=== PATIENT | male | born 1945 | race Caucasian/White ===

== ENCOUNTER 2018-02-06 14:23 | Emergency (ER) | payer OTHER ==
--- OUTSIDE RECORDS SUMMARY | 2018-02-06 14:26 | XMS REPORT ---
:1945 [facility] [address] [place] [address] Care Team Providers Name Role Phone TYLER CABRERA Unavailable Unavailable Problems This patient has no known problems. Allergies, Adverse Reactions, Alerts This patient has no known allergies or adverse reactions. Medications This patient has no known medications. Results Test Description Test Time Test Comments Text Results Atomic Results Result Comments POCT-GLUCOSE METER 2017-11-10 17:17:00 Test Item Value Reference Range Comments POC-GLUCOSE METER (BEAKER) (test 246 mg/dL 70-110 TESTED AT [facility] [address] gzjb=4126) [facility] [address] TROPONIN [id number] 13:35:00 Test Item Value Reference Range Comments TROPONIN I (BEAKER) (test mjea=533) 0.02 ng/mL 0.00-0.03 Troponin I (TnI) levels must be interpreted in the context of the presenting symptoms and the clinical findings. Elevated TnI levels indicate myocardial damage, but are not specific for ischemic heart disease. Elevated TnI levels are seen in patients with other cardiac conditions (including myocarditis and congestive heart failure), and slight TnI elevations occur in patients with other conditions, including sepsis, renal failure, acidosis, acute neurological disease, and persistent tachyarrhythmia.B-TYPE NATRIURETIC FACTOR (BNP) 13:29:00 Test Item Value Reference Range Comments B-TYPE NATRIURETIC PEPTIDE (BEAKER) (test 100 pg/mL 0-100 yqvf=147) [id number] 13:26:00 Test Item Value Reference Range Comments MAGNESIUM (BEAKER) (test kzti=212) 2.0 mg/dL 1.6-2.6 BASIC METABOLIC [id number] 13:26:00 Test Item Value Reference Range Comments SODIUM (BEAKER) (test 135 meq/L 136-145 tfqh=585) POTASSIUM (BEAKER) (test 3.5 meq/L 3.5-5.1 fjnx=568) CHLORIDE (BEAKER) (test 101 meq/L 98-107 bmul=171) CO2 (BEAKER) (test 25 meq/L 22-29 rtgy=599) BLOOD UREA NITROGEN 18 mg/dL 7-21 (BEAKER) (test jnjn=611) CREATININE (BEAKER) (test 1.33 mg/dL 0.57-1.25 amvl=533) GLUCOSE RANDOM (BEAKER) 114 mg/dL 70-105 (test ekiu=894) CALCIUM (BEAKER) (test 9.2 mg/dL 8.4-10.2 ypcg=010) EGFR (BEAKER) (test 53 mL/min/1.73 sq m ESTIMATED GFR IS NOT qgna=6032) ACCURATE CREATININE CLEARANCE IN PREDICTING GLOMERULAR FILTRATION RATE. ESTIMATED GFR IS NOT APPLICABLE FOR DIALYSIS PATIENTS. RAD, CHEST, 1 VIEW, NON [id number] 12:07:00Reason for exam:->coughShould this be performed at the bedside?->YesFINAL REPORT CLINICAL HISTORY: cough TECHNIQUE: 1 view of the chest. COMPARISON: None IMPRESSION: There are no focal infiltrates or effusions. The cardiomediastinal silhouette is magnified by technique. The osseous structures appear intact. Signed: Gaston Maddox Verified Date/Time: 11/10/2017 12:07:45 Reading Location: [facility] Radiology Reading Room POCT-GLUCOSE [id number] 12:06:00 Test Item Value Reference Range Comments POC-GLUCOSE METER (BEAKER) 116 mg/dL 70-110 TESTED AT [address] (test qtea=4971) [facility] [address] POCT-GLUCOSE [id number] 08:31:00 Test Item Value Reference Range Comments POC-GLUCOSE METER (BEAKER) 123 mg/dL 70-110 TESTED AT [address] (test slsp=6958) [facility] [address] POCT-GLUCOSE [id number] 21:22:00 Test Item Value Reference Range Comments POC-GLUCOSE METER (BEAKER) 156 mg/dL 70-110 TESTED AT [address] (test utni=4146) [place] [address] TROPONIN [id number] 19:39:00 Test Item Value Reference Range Comments TROPONIN I (BEAKER) (test mdwl=927) 0.02 ng/mL 0.00-0.03 Troponin I (TnI) levels must be interpreted in the context of the presenting symptoms and the clinical findings. Elevated TnI levels indicate myocardial damage, but are not specific for ischemic heart disease. Elevated TnI levels are seen in patients with other cardiac conditions (including myocarditis and congestive heart failure), and slight TnI elevations occur in patients with other conditions, including sepsis, renal failure, acidosis, acute neurological disease, and persistent tachyarrhythmia.BASIC METABOLIC [id number] 19:15:00 Test Item Value Reference Range Comments SODIUM (BEAKER) (test 138 meq/L 136-145 jyzq=788) POTASSIUM (BEAKER) (test 3.6 meq/L 3.5-5.1 zgar=093) CHLORIDE (BEAKER) (test 105 meq/L 98-107 cltl=202) CO2 (BEAKER) (test 24 meq/L 22-29 xljh=826) BLOOD UREA NITROGEN 14 mg/dL 7-21 (BEAKER) (test vesz=707) CREATININE (BEAKER) (test 1.17 mg/dL 0.57-1.25 bsrr=329) GLUCOSE RANDOM (BEAKER) 165 mg/dL 70-105 (test wvac=943) CALCIUM (BEAKER) (test 9.2 mg/dL 8.4-10.2 flaa=691) EGFR (BEAKER) (test 62 mL/min/1.73 sq m ESTIMATED GFR IS NOT asti=1547) ACCURATE CREATININE CLEARANCE IN PREDICTING GLOMERULAR FILTRATION RATE. ESTIMATED GFR IS NOT APPLICABLE FOR DIALYSIS PATIENTS. POCT-GLUCOSE [id number] 16:51:00 Test Item Value Reference Range Comments POC-GLUCOSE METER (BEAKER) 129 mg/dL 70-110 TESTED AT [address] (test jkyw=1965) [place] [address] POCT-GLUCOSE [id number] 12:13:00 Test Item Value Reference Range Comments POC-GLUCOSE METER (BEAKER) 181 mg/dL 70-110 TESTED AT [address] (test rvfz=3314) [place] [address] POCT-GLUCOSE [id number] 08:29:00 Test Item Value Reference Range Comments POC-GLUCOSE METER (BEAKER) 148 mg/dL 70-110 TESTED AT [address] (test kljg=6435) [place] [id number] BASIC METABOLIC [id number] 06:27:00 Test Item Value Reference Range Comments SODIUM (BEAKER) (test 139 meq/L 136-145 jbnw=619) POTASSIUM (BEAKER) (test 3.3 meq/L 3.5-5.1 ejrs=347) CHLORIDE (BEAKER) (test 108 meq/L 98-107 anyw=844) CO2 (BEAKER) (test 24 meq/L 22-29 laxa=610) BLOOD UREA NITROGEN 19 mg/dL 7-21 (BEAKER) (test qfoh=105) CREATININE (BEAKER) (test 1.09 mg/dL 0.57-1.25 utoc=723) GLUCOSE RANDOM (BEAKER) 136 mg/dL 70-105 (test dnax=746) CALCIUM (BEAKER) (test 8.5 mg/dL 8.4-10.2 ugxi=186) EGFR (BEAKER) (test 67 mL/min/1.73 sq m ESTIMATED GFR IS NOT fjxz=1409) ACCURATE CREATININE CLEARANCE IN PREDICTING GLOMERULAR FILTRATION RATE. ESTIMATED GFR IS NOT APPLICABLE FOR DIALYSIS PATIENTS. POCT-GLUCOSE [id number] 20:28:00 Test Item Value Reference Range Comments POC-GLUCOSE METER (BEAKER) 176 mg/dL 70-110 TESTED AT [address] (test onax=8517) [place] [id number] POCT-GLUCOSE [id number] 17:06:00 Test Item Value Reference Range Comments POC-GLUCOSE METER (BEAKER) 146 mg/dL 70-110 TESTED AT [address] (test gaje=4632) [place] [address] HEMOGLOBIN [id number] 11:51:00 Test Item Value Reference Range Comments HEMOGLOBIN A1C (BEAKER) (test blpa=902) 7.3 % 4.3-6.1 POCT-GLUCOSE [id number] 11:39:00 Test Item Value Reference Range Comments POC-GLUCOSE METER (BEAKER) 174 mg/dL 70-110 TESTED AT [address] (test efhs=9345) [place] [address] [id number] 11:11:00 Test Item Value Reference Range Comments RPR SCREEN (BEAKER) (test vwbu=307) Nonreactive Nonreactive POCT-GLUCOSE [id number] 08:37:00 Test Item Value Reference Range Comments POC-GLUCOSE METER (BEAKER) 138 mg/dL 70-110 TESTED AT [facility] [address] (test hkpl=3638) [facility] [address] TSH/FREE T4 IF [id number] 08:17:00 Test Item Value Reference Range Comments THYROID STIMULATING HORMONE (BEAKER) (test 3.52 uIU/mL 0.35-4.94 lphy=451) VITAMIN B12 AND [id number] 08:17:00 Test Item Value Reference Range Comments VITAMIN B12 (BEAKER) (test kkhp=626) 225 pg/mL 213-816 FOLATE (BEAKER) (test etjk=307) 14.0 ng/mL >=7.0 LIPID [id number] 07:10:00 Test Item Value Reference Range Comments TRIGLYCERIDES (BEAKER) (test lsap=105) 91 mg/dL CHOLESTEROL (BEAKER) (test ocgw=034) 208 mg/dL HDL CHOLESTEROL (BEAKER) (test azqc=060) 37 mg/dL LDL CHOLESTEROL CALCULATED (BEAKER) (test 153 mg/dL nzrp=624) Triglyceride Reference Range: Low Risk <150 Borderline 150- 199 High Risk 200-499 Very High Risk >=500Cholesterol Reference Range: Low Risk <200 Borderline 200-239 High Risk > 240HDL Cholesterol Reference Range: Low Risk >=60 High Risk <40LDL Cholesterol Reference Range: Optimal <100 Near Optimal 100-129 Borderline 130-159 High 160-189 Very High >=190COMPREHENSIVE METABOLIC [id number] 07:10:00 Test Item Value Reference Range Comments TOTAL PROTEIN (BEAKER) 6.7 gm/dL 6.0-8.3 (test jhjo=174) ALBUMIN (BEAKER) (test 3.5 g/dL 3.5-5.0 edmy=4100) ALKALINE PHOSPHATASE 106 U/L 40-150 (BEAKER) (test qsad=486) BILIRUBIN TOTAL (BEAKER) 1.7 mg/dL 0.2-1.2 (test oqqb=493) SODIUM (BEAKER) (test 139 meq/L 136-145 extl=524) POTASSIUM (BEAKER) (test 3.1 meq/L 3.5-5.1 brzn=085) CHLORIDE (BEAKER) (test 106 meq/L 98-107 whqy=353) CO2 (BEAKER) (test 26 meq/L 22-29 yulv=419) BLOOD UREA NITROGEN 19 mg/dL 7-21 (BEAKER) (test dnje=977) CREATININE (BEAKER) (test 1.11 mg/dL 0.57-1.25 atma=596) GLUCOSE RANDOM (BEAKER) 128 mg/dL 70-105 (test kdvh=747) CALCIUM (BEAKER) (test 8.7 mg/dL 8.4-10.2 xgax=972) AST (SGOT) (BEAKER) (test 36 U/L 5-34 rcvd=068) ALT (SGPT) (BEAKER) (test 26 U/L 6-55 cfnq=723) EGFR (BEAKER) (test 65 mL/min/1.73 sq m ESTIMATED GFR IS NOT gnml=1686) ACCURATE CREATININE CLEARANCE IN PREDICTING GLOMERULAR FILTRATION RATE. ESTIMATED GFR IS NOT APPLICABLE FOR DIALYSIS PATIENTS. [id number] 06:26:00 Test Item Value Reference Range Comments PROTIME (BEAKER) (test rqii=186) 15.5 seconds 11.7-14.7 INR (BEAKER) (test prht=161) 1.2 <=5.9 PARTIAL THROMBOPLASTIN TIME (BEAKER) (test 33.9 seconds 22.5-36.0 ngwh=624) RECOMMENDED COUMADIN/WARFARIN INR THERAPY RANGESSTANDARD DOSE: 2.0 - 3.0 Includes: PROPHYLAXIS forvenous thrombosis, systemic embolization; TREATMENT for venous thrombosis and/or pulmonary embolus.HIGH RISK: Target INR is 2.5-3.5 for patients with mechanical heart valves.CBC W/PLT COUNT & AUTO [id number] 06:08:00 Test Item Value Reference Range Comments WHITE BLOOD CELL COUNT (BEAKER) (test vkop=324) 7.5 K/ L 3.5-10.5 RED BLOOD CELL COUNT (BEAKER) (test tuzw=426) 4.31 M/ L 4.63-6.08 HEMOGLOBIN (BEAKER) (test qeog=500) 14.0 GM/DL 13.7-17.5 HEMATOCRIT (BEAKER) (test koew=826) 40.2 % 40.1-51.0 MEAN CORPUSCULAR VOLUME (BEAKER) (test jftz=506) 93.3 fL 79.0-92.2 MEAN CORPUSCULAR HEMOGLOBIN (BEAKER) (test 32.5 pg 25.7-32.2 mute=856) MEAN CORPUSCULAR HEMOGLOBIN CONC (BEAKER) (test 34.8 GM/DL 32.3-36.5 nfyr=831) RED CELL DISTRIBUTION WIDTH (BEAKER) (test 12.6 % 11.6-14.4 nluj=176) PLATELET COUNT (BEAKER) (test hxqi=398) 160 K/CU MM 150-450 MEAN PLATELET VOLUME (BEAKER) (test dclu=911) 10.1 fL 9.4-12.4 NUCLEATED RED BLOOD CELLS (BEAKER) (test 0 /100 WBC 0-0 nyoi=973) NEUTROPHILS RELATIVE PERCENT (BEAKER) (test 52 % fjyv=963) LYMPHOCYTES RELATIVE PERCENT (BEAKER) (test 36 % aesb=648) MONOCYTES RELATIVE PERCENT (BEAKER) (test 8 % ylgp=462) EOSINOPHILS RELATIVE PERCENT (BEAKER) (test 4 % fkgb=859) BASOPHILS RELATIVE PERCENT (BEAKER) (test 1 % bwnq=234) NEUTROPHILS ABSOLUTE COUNT (BEAKER) (test 3.90 K/ L 1.78-5.38 edew=337) LYMPHOCYTES ABSOLUTE COUNT (BEAKER) (test 2.68 K/ L 1.32-3.57 obxw=793) MONOCYTES ABSOLUTE COUNT (BEAKER) (test 0.58 K/ L 0.30-0.82 cesn=992) EOSINOPHILS ABSOLUTE COUNT (BEAKER) (test 0.28 K/ L 0.04-0.54 snwr=179) BASOPHILS ABSOLUTE COUNT (BEAKER) (test 0.05 K/ L 0.01-0.08 yrxf=601) IMMATURE GRANULOCYTES-RELATIVE PERCENT (BEAKER) 0 % 0-1 (test ykpf=1663) MR, MRA, BRAIN, WITHOUT [id number] 03:09:00Reason for exam:-> Ischemic Stroke EvaluationFINAL REPORT MR, BRAIN, WITHOUT CONTRAST, MR, MRA, NECK, WITHOUT IV CONTRAST,MR, MRA, BRAIN, WITHOUT CONTRAST INDICATION: StrokeIschemic Stroke Evaluation TECHNIQUE: Multiplanar, multisequence MR images of the brain. 3-D time of flight MRA of the cranial and cervical circulation. 2-D time of flight MRA of the neck. 3D MIP angiographic post-processing was performed. Stenosis evaluation utilized NASCET criteria. COMPARISON: None FINDINGS: The entire exam is slightly limited due to motion artifact. MRI BRAIN: There is an acute infarction of the right posterior limb of the internal capsule and some of the ventrolateral thalamus.There is a tiny focus of diffusion abnormality measuring 6 mm along the right lateral peritrigonal temporal lobe. There is correlating T2 and FLAIR signal abnormality without ADC signal abnormality. Findings probably reflect a subacute infarct in this location with pseudonormalization of the ADC map.No evidence of hemorrhagic transformation.Moderateglobal volume loss with moderate patchy periventricular and subcortical areas of T2 and FLAIR signalabnormality consistent with chronic microvascular ischemic disease.No acute hydrocephalus.Preserved flow voids in the major intracranial vascular structures. Symmetric lobes.Moderate mucosal sinus disease of the left frontal and right ethmoid sinuses. MRA NECK: On the right, there is no significant atherosclerotic plaque at the CCA bifurcation. No flow-limiting stenosis or dissection.On the left, there is no significant atherosclerotic plaque at the CCA bifurcation. 30% narrowing of the proximal left ICA, just distal to the bifurcation.Co-dominant vertebral artery system. No flow-limiting stenosis of vertebral arteries. MRA HEAD: Widely patent high cervical ICAs.Multiple mild-to- moderate stenoses throughout the petrous ICA secondary to atherosclerosis. Mild atherosclerotic disease at the carotid siphon.No large vessel occlusion or aneurysm of the anterior circulation on this motion limited exam.Moderate irregularity of the bilateral P1 segments secondary to intracranial atherosclerosis. No flowlimiting stenosis. The remainder of the posterior circulation is unremarkable IMPRESSION:Acute infarction of the right posterior limb of the internal capsule and a small part of the ventrolateral thalamus.Probable tiny subacute infarction in the right temporal lobe.No flow- limiting stenosis of the intra or extracranial cerebral arterial vasculature.30 % narrowing of the proximal left ICA.Intracranial atherosclerosis causing multiple areas of mild to moderate stenoses in the petrous ICAs, carotid siphons , and bilateral P1 segments. Signed: Baron Andino MDReport Verified Date/Time : 11/08/2017 03:09:50 Reading Location: [facility] B1 C013X Ortho Consult Reading Room MR , MRA, NECK, WITHOUT IV [id number] 03:09:00Reason for exam:-> Ischemic Stroke EvaluationFINAL REPORT MR, BRAIN, WITHOUT CONTRAST, MR, MRA, NECK, WITHOUT IV CONTRAST,MR, MRA, BRAIN, WITHOUT CONTRAST INDICATION: StrokeIschemic Stroke Evaluation TECHNIQUE: Multiplanar, multisequence MR images of the brain. 3-D time of flight MRA of the cranial and cervical circulation. 2-D time of flight MRA of the neck. 3D MIP angiographic post-processing was performed. Stenosis evaluation utilized NASCET criteria. COMPARISON: None FINDINGS: The entire exam is slightly limited due to motion artifact. MRI BRAIN: There is an acute infarction of the right posterior limb of the internal capsule and some of the ventrolateral thalamus.There is a tiny focus of diffusion abnormality measuring 6 mm along the right lateral peritrigonal temporal lobe. There is correlating T2 and FLAIR signal abnormality without ADC signal abnormality. Findings probably reflect a subacute infarct in this location with pseudonormalization of the ADC map.No evidence of hemorrhagic transformation.Moderateglobal volume loss with moderate patchy periventricular and subcortical areas of T2 and FLAIR signalabnormality consistent with chronic microvascular ischemic disease.No acute hydrocephalus.Preserved flow voids in the major intracranial vascular structures. Symmetric lobes.Moderate mucosal sinus disease of the left frontal and right ethmoid sinuses. MRA NECK: On the right, there is no significant atherosclerotic plaque at the CCA bifurcation. No flow-limiting stenosis or dissection.On the left, there is no significant atherosclerotic plaque at the CCA bifurcation. 30% narrowing of the proximal left ICA, just distal to the bifurcation.Co-dominant vertebral artery system. No flow-limiting stenosis of vertebral arteries. MRA HEAD: Widely patent high cervical ICAs.Multiple mild-to- moderate stenoses throughout the petrous ICA secondary to atherosclerosis. Mild atherosclerotic disease at the carotid siphon.No large vessel occlusion or aneurysm of the anterior circulation on this motion limited exam.Moderate irregularity of the bilateral P1 segments secondary to intracranial atherosclerosis. No flowlimiting stenosis. The remainder of the posterior circulation is unremarkable IMPRESSION:Acute infarction of the right posterior limb of the internal capsule and a small part of the ventrolateral thalamus.Probable tiny subacute infarction in the right temporal lobe.No flow- limiting stenosis of the intra or extracranial cerebral arterial vasculature.30 % narrowing of the proximal left ICA.Intracranial atherosclerosis causing multiple areas of mild to moderate stenoses in the petrous ICAs, carotid siphons , and bilateral P1 segments. Signed: Baron Andino MDReport Verified Date/Time : 11/08/2017 03:09:50 Reading Location: [facility] C013X Ortho Consult Reading Room MR , BRAIN, WITHOUT [id number] 03:09:00Reason for exam:->Ischemic Stroke EvaluationFINAL REPORT MR, BRAIN, WITHOUT CONTRAST , MR, MRA, NECK, WITHOUT IV CONTRAST,MR, MRA, BRAIN, WITHOUT CONTRAST INDICATION : StrokeIschemic Stroke Evaluation TECHNIQUE: Multiplanar, multisequence MR images of the brain. 3-D time of flight MRA of the cranial and cervical circulation. 2-D time of flight MRA of the neck. 3D MIP angiographic post- processing was performed. Stenosis evaluation utilized NASCET criteria. COMPARISON: None FINDINGS: The entire exam is slightly limited due to motion artifact. MRI BRAIN: There is an acute infarction of the right posterior limb of the internal capsule and some of the ventrolateral thalamus.There is a tiny focus of diffusion abnormality measuring 6 mm along the right lateral peritrigonal temporal lobe. There is correlating T2 and FLAIR signal abnormality without ADC signal abnormality. Findings probably reflect a subacute infarct in this location with pseudonormalization of the ADC map.No evidence of hemorrhagic transformation.Moderateglobal volume loss with moderate patchy periventricular and subcortical areas of T2 and FLAIR signalabnormality consistent with chronic microvascular ischemic disease.No acute hydrocephalus.Preserved flow voids in the major intracranial vascular structures. Symmetric lobes.Moderate mucosal sinus disease of the left frontal and right ethmoid sinuses. MRA NECK: On the right, there is no significant atherosclerotic plaque at the CCA bifurcation. No flow-limiting stenosis or dissection.On the left, there is no significant atherosclerotic plaque at the CCA bifurcation. 30% narrowing of the proximal left ICA, just distal to the bifurcation.Co-dominant vertebral artery system. No flow-limiting stenosis of vertebral arteries. MRA HEAD: Widely patent high cervical ICAs.Multiple mild-to- moderate stenoses throughout the petrous ICA secondary to atherosclerosis. Mild atherosclerotic disease at the carotid siphon.No large vessel occlusion or aneurysm of the anterior circulation on this motion limited exam.Moderate irregularity of the bilateral P1 segments secondary to intracranial atherosclerosis. No flowlimiting stenosis. The remainder of the posterior circulation is unremarkable IMPRESSION:Acute infarction of the right posterior limb of the internal capsule and a small part of the ventrolateral thalamus.Probable tiny subacute infarction in the right temporal lobe.No flow- limiting stenosis of the intra or extracranial cerebral arterial vasculature.30 % narrowing of the proximal left ICA.Intracranial atherosclerosis causing multiple areas of mild to moderate stenoses in the petrous ICAs, carotid siphons , and bilateral P1 segments. Signed: Baron Andino MDReport Verified Date/Time : 11/08/2017 03:09:50 Reading Location: [facility] C013X Ortho Consult Reading Room POCT-GLUCOSE [id number] 23:19:00 Test Item Value Reference Range Comments POC-GLUCOSE METER (BEAKER) 102 mg/dL 70-110 TESTED AT [address] (test olzs=5234) [facility] [address] POCT-GLUCOSE [id number] 23:13:00 Test Item Value Reference Range Comments POC-GLUCOSE METER (BEAKER) 112 mg/dL 70-110 TESTED AT [address] (test cajc=9282) [facility] [address] URINALYSIS W/ [id number] 22:45:00 Test Item Value Reference Range Comments COLOR (BEAKER) (test gply=606) Yellow CLARITY (BEAKER) (test hxfx=257) Clear SPECIFIC GRAVITY UA (BEAKER) (test lfrz=766) 1.015 1.001-1.035 PH UA (BEAKER) (test jaym=592) 5.5 5.0-8.0 PROTEIN UA (BEAKER) (test phrr=716) 10 mg/dL Negative GLUCOSE UA (BEAKER) (test ryol=495) 500 mg/dL Negative KETONES UA (BEAKER) (test cmnv=372) 10 mg/dL Negative BILIRUBIN UA (BEAKER) (test dsbr=498) Negative Negative BLOOD UA (BEAKER) (test agqr=256) Trace Negative NITRITE UA (BEAKER) (test vtak=086) Negative Negative LEUKOCYTE ESTERASE UA (BEAKER) (test vegp=149) Negative Negative UROBILINOGEN UA (BEAKER) (test kxxg=051) 0.2 mg/dL 0.2-1.0 RBC UA (BEAKER) (test vgxg=326) < /HPF WBC UA (BEAKER) (test cddb=508) < /HPF HYALINE CASTS (BEAKER) (test haet=510) 3 /LPF SOURCE(BEAKER) (test ppvu=4568) Urine, Voided
[2018-02-06] MEDS ORDERED: CEPHALEXIN 250 MG CAP ONE (15:52)
[2018-02-06] MEDS ORDERED: SMZ./TMP. 800/160 MG TABLET ONE (15:53)
[2018-02-06] MEDS ORDERED: LIDOCAINE 1% MPF 5 ML VIAL ONE (15:54)
[2018-02-06 16:24] LABS: Potassium 3.8 mEq/L (3.6-5.0)
[2018-02-06] MEDS ORDERED: NA CHLORIDE 0.9% 1,000 ML ONE (16:51)
[2018-02-06 17:51] LABS: Absolute Lymphocytes (CBC) 2.4 K/uL (0.7-4.9); Absolute Monocytes 0.9 K/uL (0.1-1.3); Absolute Neutrophil 6.3 K/uL (1.8-8.0); Basophils % 0.7 % (0-1.3); Eosinophils % 3.3 % (0-4.4); Hematocrit 39.8 % (39.6-49.0); Lymphocytes % 23.7 % (15.3-44.8); MCH 32.2 pg (27.0-35.0); MCV 93.6 fL (80-100); MPV 8.6 fL (7.6-11.3); Monocytes % 9.2 % (3.3-12.3); RBC Red Blood Cell Count 4.25 M/uL (4.33-5.43)
--- NOTE | 2018-02-06 17:55 | ER ---
Nurse's Notes [facility] Name: Fortunato Montero Age: 72 yrs Sex: Male : 1945 Arrival Date: 02/06/2018 Time: 14:37 Bed 19 Private MD: Diagnosis: Cutaneous abscess of back [any part, except buttock];Cellulitis of back [any part except buttock] Presentation: 02/06 14:40 Presenting complaint: Patient states: Painful abscess on left lower back x 5 days, hb unrelieved by OTC drawing salve or Neosporin. Transition of care: patient was not received from another setting of care. Onset of symptoms is unknown. Care prior to arrival: None. 14:40 Method Of Arrival: Ambulatory hb 14:40 Acuity: LOVE 3 hb Triage Assessment: 14:54 Bite description: by an unknown animal, animal information: vaccination(s) is unknown. tw2 General: Appears in no apparent distress. 14:55 Bite description: bite sustained to left low back. tw2 Historical: - Allergies: 14:41 No Known Allergies; hb - PMHx: 14:41 Diabetes - NIDDM; Hypertension; High Cholesterol; hb - Immunization history:: Adult Immunizations up to date. - Social history:: Smoking status: Patient/guardian denies using tobacco. Screenin:49 Abuse screen: Denies threats or abuse. Nutritional screening: No deficits noted. tw2 Tuberculosis screening: No symptoms or risk factors identified. Fall Risk None identified. Assessment: 14:50 General: Appears in no apparent distress. Behavior is calm, cooperative, appropriate tw2 for age. Pain: Complains of pain in back. Neuro: Level of Consciousness is awake, alert, obeys commands, Oriented to person, place, time, situation. Cardiovascular: Denies chest pain, shortness of breath, Heart tones S1 S2 Capillary refill < 3 seconds Patient's skin is warm and dry. Respiratory: Airway is patent Respiratory effort is even, unlabored, Respiratory pattern is regular, Breath sounds are clear bilaterally. GI: No signs and/or symptoms were reported involving the gastrointestinal system. Abdomen is round obese, Bowel sounds present X 4 quads. : No signs and/or symptoms were reported regarding the genitourinary system. EENT: No signs and/or symptoms were reported regarding the EENT system. Derm: Skin is intact, is healthy with good turgor, Skin is pink, warm \T\ dry. Abscess. Derm: Abscess located on left low back. Derm: Abscess is hot to touch, Reports increased pain. Musculoskeletal: Range of motion: intact in all extremities. 16:15 Reassessment: Pt. resting in room \T\ this time... family \T\ bedside. Pt. appears to be in rk 2 no obvious distress. No needs voiced \T\ this time. 17:30 Reassessment: Pt. resting in room, appears to be in no obvious distress... no needs rk2 voiced. Family \T\ bedside. Vital Signs: 14:41 BP 168 / 100; Pulse 68; Resp 16; Temp 98; Pulse Ox 100% on R/A; Weight 113.4 kg; Height hb 6 ft. 3 in. (190.50 cm); Pain 8/10; 16:23 BP 149 / 92; Pulse 81; Resp 16; Pulse Ox 96% on R/A; rk2 17:30 BP 171 / 98; Pulse 78; Resp 17; Pulse Ox 98% on R/A; rk2 18:10 BP 180 / 97; Pulse 77; Resp 17; Pulse Ox 98% on R/A; rk2 14:41 Body Mass Index 31.25 (113.40 kg, 190.50 cm) hb ED Course: 14:37 Patient arrived in ED. as 14:41 Triage completed. hb 14:41 Arm band placed on left wrist. hb 14:49 Jenn Marley RN is Primary Nurse. tw2 14:50 Bed in low position. Call light in reach. Pulse ox on. NIBP on. tw2 14:57 Vicki Yousif FNP-C is PHCP. kb 14:57 Alejandro Swann MD is Attending Physician. kb 14:57 Report given to ROBINA Flynn. tw2 15:28 Blood Culture Adult (2) Sent. rk2 15:28 Basic Metabolic Panel Sent. rk2 15:28 CBC with Diff Sent. rk2 16:05 Wound Culture Sent. rk2 17:54 Piero Michael MD is Referral Physician. kb 18:16 No provider procedures requiring assistance completed. IV discontinued. rk2 Administered Medications: 15:44 Drug: Bactrim (160 mg-800 mg (DS) 1 tablet Route: PO; rk2 16:30 Follow up: Response: No adverse reaction rk2 15:44 Drug: KeFLEX 500 mg Route: PO; rk2 16:30 Follow up: Response: No adverse reaction rk2 16:35 Drug: NS 0.9% 1000 ml Route: IV; Rate: 1000 ml; Site: left hand; rk2 18:00 Follow up: Response: No adverse reaction; IV Status: Completed infusion rk2 Outcome: 17:54 Discharge ordered by MD. cordova 18:16 Discharged to home ambulatory. rk2 18:16 Condition: good 18:16 Discharge instructions given to patient. 18:19 Patient left the ED. rk2 Addendum: 02/09/2018 07:34 Addendum: Culture Results: Positive wound culture. No further action required. Bacteria i w sensitive to prescribed antibiotic. Signatures: Vicki Yousif, [employer]-C [employer]-Kristen Connolly Irene, RN RN Matilda Boothe RN RN Jenn Marley RN RN tw2 Rina Davis RN RN rk2
--- NOTE | 2018-02-06 17:55 | EDPHYS ---
Physician Documentation [facility] Name: Fortunato Montero Age: 72 yrs Sex: Male : 1945 Arrival Date: 02/06/2018 Time: 14:37 Bed 19 Private MD: ED Physician Alejandro Swann HPI: 02/06 15:10 This 72 yrs old Male presents to ER via Ambulatory with complaints of Insect kb Bite, Back Pain. 15:10 Description: draining, erythematous, hot, swollen. Possible cause(s): unknown. kb 15:14 The patient presents with an abscess of the left low back, The patient presents with kb cellulitis of the left low back. Onset: The symptoms/episode began/occurred 5 day(s) ago. Associated signs and symptoms: Pertinent positives: drainage, erythema, swelling, Pertinent negatives: foreign body sensation, fever, headache, nausea, shortness of breath, vomiting. Modifying factors: the symptoms are alleviated by nothing, the symptoms are aggravated by pressure, squeezing the lesion and expressing the contents, touching. Severity of symptoms: At their worst the symptoms were moderate, in the emergency department the symptoms are unchanged. The patient has not experienced similar symptoms in the past. The patient has not recently seen a physician. Historical: - Allergies: 14:41 No Known Allergies; hb - PMHx: 14:41 Diabetes - NIDDM; Hypertension; High Cholesterol; hb - Immunization history:: Adult Immunizations up to date. - Social history:: Smoking status: Patient/guardian denies using tobacco. ROS: 15:14 Constitutional: Negative for fever, chills, and weight loss, Cardiovascular: Negative kb for chest pain, palpitations, and edema, Respiratory: Negative for shortness of breath, cough, wheezing, and pleuritic chest pain, Abdomen/GI: Negative for abdominal pain, nausea, vomiting, diarrhea, and constipation, MS/Extremity: Negative for injury and deformity, Neuro: Negative for headache, weakness, numbness, tingling, and seizure. 15:14 Skin: Positive for abscess, cellulitis, erythema, swelling, of the left low back. Exam: 15:14 Constitutional: This is a well developed, well nourished patient who is awake, alert, kb and in no acute distress. Head/Face: Normocephalic, atraumatic. Chest/axilla: Normal chest wall appearance and motion. Nontender with no deformity. No lesions are appreciated. Cardiovascular: Regular rate and rhythm with a normal S1 and S2. No gallops, murmurs, or rubs. Normal PMI, no JVD. No pulse deficits. Respiratory: Lungs have equal breath sounds bilaterally, clear to auscultation and percussion. No rales, rhonchi or wheezes noted. No increased work of breathing, no retractions or nasal flaring. Abdomen/GI: Soft, non-tender, with normal bowel sounds. No distension or tympany. No guarding or rebound. No evidence of tenderness throughout. MS/ Extremity: Pulses equal, no cyanosis. Neurovascular intact. Full, normal range of motion. Neuro: Awake and alert, GCS 15, oriented to person, place, time, and situation. Cranial nerves II-XII grossly intact. Motor strength 5/5 in all extremities. Sensory grossly intact. Cerebellar exam normal. Normal gait. 15:14 Skin: abscess, that is moderate sized, of the left low back, with drainage, that is purulent, with fluctuance, that is mild, with induration, with surrounding cellulitis, that is moderate. Vital Signs: 14:41 BP 168 / 100; Pulse 68; Resp 16; Temp 98; Pulse Ox 100% on R/A; Weight 113.4 kg; Height hb 6 ft. 3 in. (190.50 cm); Pain 8/10; 16:23 BP 149 / 92; Pulse 81; Resp 16; Pulse Ox 96% on R/A; rk2 17:30 BP 171 / 98; Pulse 78; Resp 17; Pulse Ox 98% on R/A; rk2 18:10 BP 180 / 97; Pulse 77; Resp 17; Pulse Ox 98% on R/A; rk2 14:41 Body Mass Index 31.25 (113.40 kg, 190.50 cm) hb Procedures: 17:25 I \T\ D: Incision and drainage was performed for an abscess of the left left low back kb Prepped with Betadine, Anesthetized with 2 ml's 1% Lidocaine. Incised with #11 blade. Drained moderate amount purulent fluid. Dressing: sterile 4x4 gauze, the patient tolerated the procedure well. MDM: 14:57 Patient medically screened. 15:14 Data reviewed: vital signs, nurses notes. Data interpreted: Pulse oximetry: on room air kb is 100 %. Interpretation: normal. Counseling: I had a detailed discussion with the patient and/or guardian regarding: the historical points, exam findings, and any diagnostic results supporting the discharge/admit diagnosis, lab results, the need for outpatient follow up, a family practitioner, to return to the emergency department if symptoms worsen or persist or if there are any questions or concerns that arise at home. 02/06 15:02 Order name: CBC with Diff kb 02/06 15:02 Order name: Basic Metabolic Panel kb 02/06 15:02 Order name: Blood Culture Adult (2) kb 02/06 15:02 Order name: Wound Culture kb 02/06 15:47 Order name: Basic Metabolic Panel; Complete Time: 16:27 EDMS 02/06 17:52 Order name: CBC with Automated Diff; Complete Time: 17:53 EDMS 02/06 15:02 Order name: IV Start; Complete Time: 15:44 kb 02/06 15:02 Order name: I\T\D Setup; Complete Time: 15:44 kb 02/06 15:52 Order name: Labs - recollect needed; Complete Time: 16:05 bd Administered Medications: 15:44 Drug: Bactrim (160 mg-800 mg (DS) 1 tablet Route: PO; rk2 16:30 Follow up: Response: No adverse reaction rk2 15:44 Drug: KeFLEX 500 mg Route: PO; rk2 16:30 Follow up: Response: No adverse reaction rk2 16:35 Drug: NS 0.9% 1000 ml Route: IV; Rate: 1000 ml; Site: left hand; rk2 18:00 Follow up: Response: No adverse reaction; IV Status: Completed infusion rk2 Disposition: 02/06/18 17:54 Discharged to Home. Impression: Cutaneous abscess of back [any part, except buttock], Cellulitis of back [any part except buttock]. - Condition is Stable. - Discharge Instructions: Abscess, [id number], Cellulitis, [id number]. - Prescriptions for Keflex 500 mg Oral Capsule - take 1 capsule by ORAL route every 8 hours for 10 days; 30 capsule. Bactrim DS 800- 160 mg Oral Tablet - take 1 tablet by ORAL route every 12 hours for 10 days; 20 tablet. - Medication Reconciliation Form, Thank You Letter, Antibiotic Education, Prescription Opioid Use form. - Follow up: Emergency Department; When: As needed; Reason: Worsening of condition. Follow up: Private Physician; When: 2 - 3 days; Reason: Recheck today's complaints, Continuance of care, Re-evaluation by your physician. Follow up: Piero Michael; When: 2 - 3 days; Reason: Recheck today's complaints. Addendum: 02/08/2018 07:53 Co-signature as Attending Physician, Alejandro Swann MD I agree with the assessment and c unger plan of care. Signatures: Dispatcher [employer] EDMS Vicki Yousif, [employer]-C [employer]-Ckb Alexa Funez Corey, MD MD cha Baxter, Heather, RN RN Rina Ruiz RN RN rk2
== END 2018-02-06 18:19 | disposition home or self-care (01) ==
LOC: ER 14:23
DX: L03.312 Cellulitis of back [any part except buttock and flank] (principal); I10 Essential (primary) hypertension
CPT/HCPCS: 36415; 80048; 85025; 87040 ×2; 87070; 87077; 87186; 87205; 96360; 99284; J7030